=== PATIENT | female | born 1945 | race Caucasian/White ===

== ENCOUNTER 2023-01-21 06:14 | Inpatient (IN) | payer MEDICARE ==
[2023-01-14 14:30] LABS: BASOPHILS % (AUTO) 0.3 % (0-1); EOSINOPHILS # (AUTO) 0.5 X10'3 (0-0.9); EOSINOPHILS % (AUTO) 5.7 % (0-6); LYMPHOCYTES # (AUTO) 2.2 X10'3 (1.1-4.8); LYMPHOCYTES % (AUTO) 27.8 % (21-51); MEAN CORPUSCULAR HEMOGLOBIN 30.5 PG (27.0-31.0); MEAN CORPUSCULAR HGB CONC 33.5 g/dL (33.0-36.5); MEAN PLATELET VOLUME 7.9 FL (7.4-10.4); MONOCYTES # (AUTO) 0.5 X10'3 (0-0.9); MONOCYTES % (AUTO) 6.4 % (2-12); NEUTROPHILS # (AUTO) 4.8 X10'3 (1.8-7.7); NEUTROPHILS % (AUTO) 59.8 % (42-75); PRE OP HEMATOCRIT 41.5 % (35.0-45.0); PRE OP HEMOGLOBIN 13.9 g/dL (12.0-16.0); PRE OP PLATELET COUNT 229 X10'3 (140-440); RED BLOOD COUNT 4.56 X10'6 (4.20-5.60); RED CELL DISTRIBUTION WIDTH 13.8 % (11.5-14.5)
[2023-01-14 15:00] LABS: ALBUMIN 3.5 G/DL (3.4-5.0); ALBUMIN/GLOBULIN RATIO 0.9 (1.1-1.5); ALKALINE PHOSPHATASE 56 IU/L (46-116); BLOOD UREA NITROGEN 18 MG/DL (7-18); BUN/CREATININE RATIO 20.2 (10.0-20.0); CALCIUM 9.1 MG/DL (8.5-10.1); CHLORIDE 101 MMOL/L (99-107); CREATININE 0.89 MG/DL (0.40-0.90); PRE OP ALT 17 U/L (30-65); PRE OP ANION GAP 5 (8-16); PRE OP AST 14 U/L (10-37); PRE OP BILIRUB, TOTAL 0.2 MG/DL (0.0-1.0); PRE OP GLUCOSE 84 MG/DL (70-104); PRE OP POTASSIUM 4.4 MMOL/L (3.4-5.1); PRE OP SODIUM 136 MMOL/L (135-145); TOTAL CARBON DIOXIDE 29.8 MMOL/L (24-32); TOTAL PROTEIN 7.6 G/DL (6.4-8.2); eGFR 61 ML/MIN
[2023-01-21] VITALS (20 sets, daily range): BP systolic 101–151; BP diastolic 45–78
[~2023-01-21] VITALS: Ht 154.9 cm; Wt 100.2 kg
[~2023-01-21 06:14] MED LIST: AMLO2.5T2 PO; ASPI81TA52 PO; BENA20TA82 PO; CALC600T62 PO; DOCUMENT DATE & TIME OF BETA-BLOCKER PO ONE; EST1T PO; FLUO20CA39 PO; FLUT16SP2 BOTHNARES; GOLO PO; LIOT5TAB10 PO; LOP12.5T PO; OMEG-133 PO; SODI1PAC10; SYN0.088T PO; [UNRECOGNIZED DRUG - CODE] PO; cefazolin 2gm/D5W 100mL 100 ML IV ONE; famotidine 20mg tablet PO ONE; ringers solution, lacted 1,000 ML IV SCH; tranexamic acid 650mg tablet PO ONE; vancomycin 1,500 MG in NS 300ml IV soln IV ONE
[2023-01-21] MEDS ORDERED: morphine 4 MG/ML inj SYRINge IV PRN (07:40)
[2023-01-21] MEDS ORDERED: ondansetron/PF 4mg/2ml inj IV PRN ×2 (07:40→13:00)
[2023-01-21] MEDS ORDERED: morphine 2 MG/ML inj. syringe IV PRN (07:40)
[2023-01-21] MEDS ORDERED: meperidine/PF 25mg/ml syringe IV PRN ×2 (07:40)
[2023-01-21] MEDS ORDERED: proCHLORperazine 10 MG/2 ml inj IV PRN (07:40)
[2023-01-21] MEDS ORDERED: ringers solution, lacted 1,000 ML IV SCH (07:40)
--- NOTE | 2023-01-21 08:16 | NUR ---
PATIENT WATCHED VIDEO USED OINTMENT CSM INTACT
[2023-01-21] MEDS ORDERED: ROPIVAcaine 0.5% (5mg/ml) 30ml vial ONE ×2 (08:44→09:22)
[2023-01-21] MEDS ORDERED: ketorolac trometh. 30mg/ml inj. ONE (08:44)
[2023-01-21] MEDS ORDERED: MIDAZolam 1 MG/ML 5ML VIAL ONE (09:20)
[2023-01-21] MEDS ORDERED: fentaNYL/PF 50MCG/1 ML 2ML syringe ONE (09:20)
[2023-01-21] MEDS ORDERED: dexamethasone sod phosphate 4mg/ml inj. ONE (11:11)
[2023-01-21] MEDS ORDERED: propofol inj 20 ML IV ONE (11:11)
[2023-01-21] MEDS ORDERED: rocuronium 10mg/ml inj IV ONE (11:11)
[2023-01-21] MEDS ORDERED: ROPIVAcaine 0.2%/PF PUMP/bolus 545 ML INTERSCALE SCH (11:25)
[2023-01-21] MEDS ORDERED: ROPIVAcaine 0.2% (10 MG/5 ML) BOLUS INJECTION INTERSCALE PRN (11:25)
[2023-01-21] MEDS ORDERED: ondansetron/PF 4mg/2ml inj ONE (12:12)
[2023-01-21] MEDS ORDERED: glycopyrrolate 0.2mg/ml inj ONE (12:29)
[2023-01-21] MEDS ORDERED: neostigmine methylsulfate 1 MG/ML 10ml vial ONE (12:29)
--- NOTE | 2023-01-21 12:45 | NUR ---
PT ARRIVED TO VIA BED ACCOMPANIED BY DR. AGUILAR-ANESTHESIA REPORT GIVEN, PT WAKING UP, VSS, RIGTH ARM IN SLING WITH SHOULDER WRAP AND ICE PACK PRESENT-ONQ CATHETER PRESENT, CSM PRESENT ABLE TO MOVE FINGERS, PULSE PALPABLE IN RIGHT WRIST.
[2023-01-21] MEDS ORDERED: naloxone 0.4 mg/ml inj IV PRN (13:00)
[2023-01-21] MEDS ORDERED: acetaminophen 325mg tablet PO PRN (13:00)
[2023-01-21] MEDS ORDERED: bisacodyl 10mg suppository rectal RC PRN (13:00)
[2023-01-21] MEDS ORDERED: diphenhydrAMINE 25mg capsule PO PRN ×2 (13:00)
[2023-01-21] MEDS ORDERED: HYDROmorphone inj. 0.5 MG/0.5 ML DISP.SYRIN IV PRN (13:00)
[2023-01-21] MEDS ORDERED: oxyCODONE IR 5mg (immed. release) tablet PO PRN ×2 (13:00)
[2023-01-21] MEDS ORDERED: HYDROcodone/acetaminophen 10/325mg tab PO PRN ×2 (13:00)
[2023-01-21] MEDS ORDERED: HYDROmorphone 1 mg/ml syringe IV PRN (13:00)
[2023-01-21] MEDS ORDERED: magnesium hydroxide 30ml (MOM) UD suspension PO PRN (13:00)
[2023-01-21] MEDS ORDERED: acetaminophen 1,000mg/100ml IV 100 ML IV ONE (13:05)
[2023-01-21] MEDS: acetaminophen 325mg tablet PO SCH ×2 (14:00→19:29)
[2023-01-21] MEDS: meperidine/PF 25mg/ml syringe IV PRN ×2 (14:04→14:23)
--- NOTE | 2023-01-21 14:30 | NUR ---
pt arived to room 4015A, all belongings accounted for from PAS. VSS, alert and oriented to room, call light in reach. Pt tolerating fluids well. Bipap machine from home set up at bedside. new powder pack in place. no reported pain
--- NOTE | 2023-01-21 14:35 | NUR ---
PT AWAKE, VSS, PAIN MANAGEABLE- GIVEN IV TYLENOL AND DEMEROL, NO CHANGE IN DRSG OR CSM, SLIGHT ACHE TO RIGHT SHOULDER, ON-Q ATTACHED AND STARTED AT 4ML-PT EDUCATED ON USE, REPORT CALLED TO RN- ALL QUESTIONS ANSWERED, TAKEN WITH ALL BELONGINGS, INCLUDING OWN BIPAP TO FLOOR.
[2023-01-21] MEDS: potassium cl 20mEq in 1/2 NS 1,000 ML IV SCH (15:04)
[2023-01-21] MEDS: ceFAZolin/D5W- 1GM premix 50 ML IV SCH (16:15)
--- NOTE | 2023-01-21 17:30 | NUR ---
I have reviewed and agree with interventions, assessments, and documentation by Danyell Hoyt LVN.
--- NOTE | 2023-01-21 18:17 | NUR ---
Problems reprioritized. Patient report given, questions answered & plan of care reviewed with Kimberly NIELSON.
--- NOTE | 2023-01-21 18:20 | NUR ---
Patient in room [facility]TH[facility] 4015. I have received report from SARAH Child and had the opportunity to ask questions and assume patient care.
[2023-01-21] MEDS: metoprolol tartrate 25mg tablet PO SCH (19:28)
[2023-01-21] MEDS: lisinopril 20mg tablet PO SCH (19:29)
[2023-01-21] MEDS ORDERED: vancomycin/NS 1 GM ADD-VANTAGE 250 ML IV SCH (20:00)
[2023-01-21] MEDS ORDERED: sennosides 8.6mg tablet PO SCH (21:00)
[2023-01-22] MEDS: potassium cl 20mEq in 1/2 NS 1,000 ML IV SCH ×2 (00:12→07:00)
[2023-01-22] MEDS: ceFAZolin/D5W- 1GM premix 50 ML IV SCH (00:12)
[2023-01-22 02:00] VITALS: BP 123/60
[2023-01-22] MEDS: acetaminophen 325mg tablet PO SCH ×2 (02:16→07:37)
[2023-01-22 06:00] VITALS: BP 126/62
[2023-01-22 06:49] LABS: BASOPHILS % (AUTO) 0.2 % (0-1); EOSINOPHILS % (AUTO) 0 % (0-6); HEMATOCRIT 36.9 % (35.0-45.0); HEMOGLOBIN 12.1 g/dl (12.0-16.0); LYMPHOCYTES # (AUTO) 1.1 X10'3 (1.1-4.8); LYMPHOCYTES % (AUTO) 7.8 % (21-51); MEAN CORPUSCULAR HEMOGLOBIN 29.7 PG (27.0-31.0); MEAN CORPUSCULAR HGB CONC 32.7 g/dL (33.0-36.5); MEAN CORPUSCULAR VOLUME 90.8 FL (78-98); MEAN PLATELET VOLUME 8.7 FL (7.4-10.4); MONOCYTES # (AUTO) 0.6 X10'3 (0-0.9); NEUTROPHILS # (AUTO) 12.5 X10'3 (1.8-7.7); PLATELET COUNT 251 X10'3 (140-440); RED BLOOD COUNT 4.06 X10'6 (4.20-5.60); RED CELL DISTRIBUTION WIDTH 13.8 % (11.5-14.5); WHITE BLOOD COUNT 14.2 X10'3 (4.5-11.0)
--- NOTE | 2023-01-22 06:49 | NUR ---
Problems reprioritized. Patient report given, questions answered & plan of care reviewed with SARAH Holbrook.
[2023-01-22 06:50] LABS: ANION GAP 5 (8-16); CHLORIDE 104 MMOL/L (99-107); POTASSIUM 4.4 MMOL/L (3.5-5.1); SODIUM 134 MMOL/L (135-145); TOTAL CARBON DIOXIDE 24.7 MMOL/L (24-32)
[2023-01-22] MEDS ORDERED: liothyronine sod 5mcg tablet PO SCH (07:00)
[2023-01-22] MEDS ORDERED: levoTHYROXINE 88mcg tablet PO SCH (07:00)
[2023-01-22] MEDS: metoprolol tartrate 25mg tablet PO SCH (07:35)
[2023-01-22] MEDS: lisinopril 20mg tablet PO SCH (07:35)
[2023-01-22] MEDS ORDERED: cholecalciferol (vitamin D3) 1,000 unit (25mcg) tablet PO SCH (08:00)
[2023-01-22] MEDS ORDERED: OMEGA-3/DHA/EPA/FISH OIL 1 EACH CAPSULE.DR PO SCH (08:00)
[2023-01-22] MEDS ORDERED: SODIUM CHLORIDE SCH (08:00)
[2023-01-22] MEDS ORDERED: amLODIPine 5mg tablet PO SCH (08:00)
[2023-01-22] MEDS ORDERED: FLUoxetine 20mg capsule PO SCH (08:00)
[2023-01-22] MEDS ORDERED: calcium carbonate 500mg tablet PO SCH (08:00)
[2023-01-22] MEDS ORDERED: SODIUM BICARB SCH (08:00)
[2023-01-22] MEDS ORDERED: fluticasone nasal spray 16GM bottle NS SCH (08:00)
[2023-01-22] MEDS ORDERED: aspirin 325mg tablet PO SCH (08:30)
[2023-01-22 10:00] VITALS: BP 134/56
--- NOTE | 2023-01-22 10:00 | NUR ---
I have reviewed and agree with interventions, assessments, and documentation by Ghada Busch LVN.
--- NOTE | 2023-01-22 10:59 | NUR ---
Joint surgery consult: Pt s/p R shoulder surgery this admit per EMR. Pt seen by [facility] for written/verbal high protein diet ed w/ RD contact information provided. RD encouraged pt to contact dietitian's office if further nutrition questions/concerns. Pt reports lactose intolerance dietary notified. Addendum: 01/22/23 at [address] Amended: Links added.
--- NOTE | 2023-01-22 12:30 | NUR ---
Patient discharged home with spouse via POV. Personal belongings sent with. PIV D/c, tip in tact. Patient alert and appropriate at time of discharge.
[2023-01-23] MEDS ORDERED: estradiol 1mg tablet PO SCH (08:00)
[2023-01-23] MEDS ORDERED: acetaminophen 325mg tablet PO PRN (13:00)
== END 2023-01-22 12:32 | disposition home or self-care (01) | DRG 483 ==
LOC: PAS IN 06:14 → ORTHO 4S 14:35
PROVIDERS: ADMIT Orthopaedic Surgery; ATTEND Orthopaedic Surgery
PROC: 0LS30ZZ Reposition Right Upper Arm Tendon, Open Approach (ICD-10-PCS; 2023-01-21)
PROC: 5A09357 Assistance with Respiratory Ventilation, Less than 24 Consecutive Hours, Continuous Positive Airway Pressure (ICD-10-PCS; 2023-01-21)
PROC: 3E0T3BZ Introduction of Anesthetic Agent into Peripheral Nerves and Plexi, Percutaneous Approach (ICD-10-PCS; 2023-01-21)
PROC: 3E0T33Z Introduction of Anti-inflammatory into Peripheral Nerves and Plexi, Percutaneous Approach (ICD-10-PCS; 2023-01-21)
PROC: 0RRJ00Z Replacement of Right Shoulder Joint with Reverse Ball and Socket Synthetic Substitute, Open Approach (ICD-10-PCS; principal; 2023-01-21 10:12)
DX: M19.011 Primary osteoarthritis, right shoulder (principal); M75.121 Complete rotator cuff tear or rupture of right shoulder, not specified as traumatic; M75.21 Bicipital tendinitis, right shoulder
CPT/HCPCS: 36415; 80051; 80053; 82948; 85025; 87081; 97110; 97116; 97161; 97530; A4565; A4615; A4618; A7000; C1776; G0378; J0690; J1100; J1885; J2175; J2250; J2405; J2704; J2710; J2795; J3010; J3370; J3480; J3490; J7040; J7120

== ENCOUNTER 2025-06-01 12:47 | Outpatient (CLI) | payer MEDICARE, OTHER ==
[~2025-06-01 12:47] MED LIST changes: -DOCUMENT DATE & TIME OF BETA-BLOCKER PO ONE; -FLUO20CA39 PO; +FLUO20CA41 PO; -cefazolin 2gm/D5W 100mL 100 ML IV ONE; -famotidine 20mg tablet PO ONE; -ringers solution, lacted 1,000 ML IV SCH; -tranexamic acid 650mg tablet PO ONE; -vancomycin 1,500 MG in NS 300ml IV soln IV ONE
--- NOTE | 2025-06-01 14:09 | RADIOLOGY REPORT ---
EXAM: DI ANKLE, COMPLETE(3VW MIN) CLINICAL INDICATION: Primary osteoarthritis, right ankle and foot TECHNIQUE: DI ANKLE, COMPLETE(3VW MIN) Comparison: None FINDINGS/IMPRESSION: Postsurgical changes distal tibia and fibula.
== END 2025-06-01 23:59 | disposition home or self-care (01) ==
LOC: RAD 12:47
PROVIDERS: ATTEND Podiatrist Foot & Ankle Surgery
DX: M19.071 Primary osteoarthritis, right ankle and foot (principal); Z98.890 Other specified postprocedural states
CPT/HCPCS: 73610